=== PATIENT | male | born 1995 | race Caucasian/White ===

== ENCOUNTER 2019-12-10 17:26 | Emergency (ER) | payer SELFPAY ==
[2019-12-10 17:27] VITALS: BP 82/55; PULSE 104; RESP 19; TEMP 37.3; O2SAT 97; BMI 23.7
[2019-12-10 18:34] VITALS: RESP 16; O2SAT 98
--- NOTE | 2019-12-10 18:36 | W.ED.FEVER ---
HPI - Fever General: Chief Complaint: Fever Stated Complaint: FEVER Time Seen by Provider: 12/10/19 18:31 Source: patient Mode of arrival: ambulatory Limitations: no limitations History of Present Illness: HPI Narrative: Patient comes in today with 2-day history of fever with some nausea and vomiting. 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 Patient appears mildly unwell. Patient appears in no acute pain. Associated symptoms: Reports nausea and vomiting Review of Systems General: Reports: 10 or more systems reviewed and unremarkable except in HPI and below ENMT: Reports: throat pain Resp: Reports: non-productive cough GI: Reports: nausea and vomiting PFSH ED PFSH: Social History Smoking and tobacco status: never smoked Physical Exam Const: COMMON NORMALS: no apparent distress and oriented x3 GENERAL APPEARANCE: cooperative HENMT: COMMON NORMALS: normocephalic, external ears normal, EAC's normal, TM's normal bilaterally and external nose normal HEAD & SCALP: normal to inspection and normocephalic FACE & SINUS: normal facial exam NOSE: external nose normal GENERAL EAR: hearing not grossly impaired EXTERNAL EAR: Yes external ears normal EXTERNAL AUDITORY CANAL: EAC's normal TYMPANIC MEMBRANE: TM's normal bilaterally MOUTH: oral and palatal mucosa normal THROAT: posterior oropharynx abnormal cobblestoning and erythema Eye: COMMON NORMALS: PERRL and EOMs intact bilaterally PUPIL: Yes PERRL Neck/C-Spine: COMMON NORMALS: full ROM and no lymphadenopathy Lymph: LYMPHATIC: no lymphedema noted Chest: COMMONS NORMALS: inspection of chest normal and palpation of chest normal Resp: COMMON NORMALS: normal respiratory effort and clear to auscultation bilaterally AUSCULTATION: clear to auscultation bilaterally Cardio: COMMON NORMALS: regular rate and regular rhythm RATE: regular rate RHYTHM: regular rhythm GI: COMMON NORMALS: normal to inspection, nondistended, normoactive bowel sounds and non-tender : COMMON NORMALS: Yes no CVA tenderness BLADDER/KIDNEY EXAM: Yes no CVA tenderness Back/Pelvis: COMMON NORMALS: no CVA tenderness and thoracic and lumbar spine normal to inspection Extremity: COMMON NORMALS: normal to inspection GENERAL: No edema Neuro: COMMON NORMALS: oriented x3, moves all extremities and no focal motor deficits Psych: COMMON NORMALS: mental status grossly normal and cooperative Skin: COMMON NORMALS: no rashes or lesions noted GENERAL SKIN EXAM: no rashes or lesions noted Course Vital Signs: Vital signs: Vital Signs Temperature 99.2 F 12/10/19 17:27 Pulse Rate 79 12/10/19 19:02 Respiratory Rate 16 12/10/19 19:02 Blood Pressure 118/69 12/10/19 19:02 Pulse Oximetry 97 12/10/19 19:02 MDM - Fever MDM Narrative: Medical decision making narrative: Patient comes in today for complaints of fever, nausea and vomiting for the last 2 days. Patient appears unwell. Exam notes lungs clear to auscultation. Abdomen soft nontender. Skin is warm and dry. Vital signs were normal except for some mild elevation in pulse rate. Differential diagnosis includes influenza, sepsis, pneumonia, upper respiratory infection, viral syndrome. Laboratory values noted a mild decrease in sodium at 132. CBC was normal. Influenza was positive for type a influenza. Patient was given 1 L IV fluid with improvement in pulse rate and overall symptoms. Patient was encouraged to continue fluids we will start patient on Tamiflu and recommend follow-up as needed. Patient reported understanding agreed to plan. Lab Data: Labs: Lab Results 12/10/19 12/10/19 12/10/19 Range/Units 17:30 18:50 18:50 WBC 5.9 (4.0-10.0) 10^3/ uL RBC 5.15 (4.1-5.3) 10^6/u L Hgb 15.4 (11.7-16.6) g/dL Hct 44.7 (42.0-52.0) % MCV 86.8 (80-94) fL MCH 29.9 (28.0-34.0) pg MCHC 34.5 (30.0-36.0) g/dL RDW 11.2 L (12.1-15.1) % Plt Count 232 (130-400) 10^3/c mm MPV 9.6 (7.4-10.4) fL Neut % (Auto) 66.1 % Lymph % (Auto) 19.1 % [place] % (Auto) 14.3 % Eos % (Auto) 0.0 % Baso % (Auto) 0.2 % Neut # (Auto) 3.9 (1.8-7.7) 10^3/u L Lymph # (Auto) 1.1 (0.8-4.8) 10^3/u L [place] # (Auto) 0.8 (0.2-0.9) 10^3/u L Eos # (Auto) 0.0 (0.0-0.8) 10^3/u L Baso # (Auto) 0.0 (0.0-0.1) 10^3/u L Nucleated RBC % (a uto) 0 % Nucleated RBCs # 0.0 /100WBC Sodium 132 L (136-145) mmol/L Potassium 3.7 (3.5-5.1) mmol/L Chloride 96 L (98-107) mmol/L Carbon Dioxide 24 (22-29) mmol/L Anion Gap 15.7 (5-19) BUN 9 (6-20) mg/dL Creatinine 1.1 (0.7-1.2) mg/dL GFR Calculation 82.2 L (90-130) mL/min Glucose 100 (65-115) mg/dL Calcium 9.2 (8.5-10.5) mg/dL Total Bilirubin 0.5 (0.15-1.2) mg/dL AST 18 (0-40) U/L ALT 10 (0-41) U/L Alkaline Phosphata se 67 (40-130) IU/L Total Protein 7.9 (6.6-8.7) g/dL Albumin 4.5 (3.5-5.2) g/dL Globulin 3.4 (1.3-4.6) g/dL Influenza Type A A g Positive H (Negative) POC Influenza B Ag Negative (Negative) Discharge Plan Discharge Patient Disposition: Home, Self-Care Clinical Impression: Influenza Condition: Stable Prescriptions: New oseltamivir 75 mg capsule 75 mg PO BID 5 Days Qty: 10 RF: 0 ondansetron HCl 4 mg tablet 4 mg PO Q8H PRN (Reason: nausea and vomiting) Qty: 7 RF: 0 Discharge Orders: Discharge Order (Routine); Ordered 12/10/19 Ordered By: Joaquim Weaver Referrals: Ian Trammell DO [Primary Care Provider] - Discharge Diet: Advance as tolerated Discharge Activity: Increase activity as tolerated Patient Instructions: Influenza (ED) Activity Restrictions/Additional Instructions: Drink plenty of fluids Acetaminophen and ibuprofen for pain and fever Follow-up as needed for persistent symptoms Return to ER for worsening symptoms Stand Alone Forms: Work/School Release Coding Level of Care Code ED Document Control Coordinator for Chg Fwd Exam Comprehensive
[2019-12-10 18:43] LABS: Influenza A by IFA Positive (Negative); Influenza B by IFA Negative (Negative)
[2019-12-10] MEDS: sodium chloride 0.9% 1,000 ML 999 ML IV (18:50)
[2019-12-10] MEDS: ondansetron 2 mg/ML SDV 2 mL 4 MG IVP (18:51)
[2019-12-10 18:59] LABS: Basophils % 0.2 %; Hematocrit 44.7 % (42.0-52.0); Hemoglobin 15.4 g/dL (11.7-16.6); Lymphocytes # 1.1 10^3/uL (0.8-4.8); Lymphocytes % 19.1 %; Mean Corpuscular HGB Conc 34.5 g/dL (30.0-36.0); Mean Corpuscular Hemoglobin 29.9 pg (28.0-34.0); Mean Corpuscular Volume 86.8 fL (80-94); Mean Platelet Volume 9.6 fL (7.4-10.4); Monocytes # 0.8 10^3/uL (0.2-0.9); Monocytes % 14.3 %; Neutrophils # 3.9 10^3/uL (1.8-7.7); Neutrophils % 66.1 %; Nucleated Red Blood Cells % 0 %; Platelet Count 232 10^3/cmm (130-400); Red Blood Count 5.15 10^6/uL (4.1-5.3); Red Cell Distribution Width 11.2 % (12.1-15.1); White Blood Count 5.9 10^3/uL (4.0-10.0)
[2019-12-10 19:02] VITALS: BP 118/69; PULSE 79; RESP 16; O2SAT 97
[2019-12-10 19:14] LABS: Alanine Aminotransferase 10 U/L (0-41); Albumin Level 4.5 g/dL (3.5-5.2); Alkaline Phosphatase 67 IU/L (40-130); Anion Gap 15.7 (5-19); Aspartate Amino Transferase 18 U/L (0-40); Blood Urea Nitrogen 9 mg/dL (6-20); Calcium 9.2 mg/dL (8.5-10.5); Carbon Dioxide 24 mmol/L (22-29); Chloride 96 mmol/L (98-107); Globulin 3.4 g/dL (1.3-4.6); Glomerular Filtration Rate 82.2 mL/min (90-130); Glucose 100 mg/dL (65-115); Potassium 3.7 mmol/L (3.5-5.1); Sodium 132 mmol/L (136-145); Total Bilirubin 0.5 mg/dL (0.15-1.2); Total Protein 7.9 g/dL (6.6-8.7)
[2019-12-10] MEDS: oseltamivir phosphate 75 mg Capsule PO (19:54)
[2019-12-10 20:02] VITALS: BP 118/72; PULSE 78; RESP 16; O2SAT 98
== END 2019-12-10 20:03 | disposition home or self-care (01) ==
PROVIDERS: Family Medicine; Emergency Provider Nurse Practitioner Family; Family Provider Electrodiagnostic Medicine; PCP Electrodiagnostic Medicine
DX: J09.X2 Influenza due to identified novel influenza A virus with other respiratory manifestations (principal)
CPT/HCPCS: 36415; 80053; 85025; 87804; 96361; 96374; 96375; 99282; 99283; J2405; J7030

== ENCOUNTER → 2023-11-24 12:43 | Outpatient (BNVA) | payer SELFPAY | PROVIDERS: Family Provider Electrodiagnostic Medicine; Visit Provider Emergency Medicine | DX: R05.9 Cough, unspecified (principal); B34.9 Viral infection, unspecified | CPT/HCPCS: 87400; 87426 ==

== ENCOUNTER 2025-09-13 00:57 | Emergency (ER) | payer SELFPAY ==
[2025-09-13 00:59] VITALS: BP 131/91; PULSE 105; RESP 18; TEMP 36.6; O2SAT 95; BMI 22.3
--- OUTSIDE RECORDS SUMMARY | 2025-09-13 01:01 | XMS_ITS | Clinical Summary ---
Author Organization [facility] de Address [address] [place] [address] Phone Care Team Providers Care Platform Beater Name Role Phone Ian Trammell DO Primary Care Provider [phone] Allergies No known active allergies Medications amitriptyline (ELAVIL) 25 mg tablet Take 0.5 Tabs by mouth daily at bedtime. x1 wk; 25mg nightly x 1 wk; 37.5mg nightly x 1 week; 50mg nightly x 1 week. 180 Tab 6 09/05/2013 Active rizatriptan (MAXALT) 10 mg Tablet Take 1 Tab by mouth 1 time daily as needed for Migraine. 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 Social History Tobacco Use Types Packs/Day Years Used Date Smoking Tobacco: Never Assessed Sex and Gender Information Value Date Recorded Sex Assigned at Not on file Legal Sex Male 3:44 PM CDT Gender Identity Not on file Sexual Orientation Not on file Last Filed Vital Signs Vital Sign Reading Time Taken Comments Blood Pressure 100/60 09/05/2013 1:42 PM PARA EDUCATOR Pulse 72 09/05/2013 1:42 PM PARA EDUCATOR Temperature - - Respiratory Rate - - Oxygen Saturation - - Inhaled Oxygen Concentration - - Weight 69.9 kg (154 lb) 09/05/2013 1:42 PM PARA EDUCATOR Height 178 cm (5' 10.08 ) 09/05/2013 1:42 PM PARA EDUCATOR Body Mass Index 22.05 09/05/2013 1:42 PM PARA EDUCATOR Plan of Treatment Health Maintenance Due Date Last Done Comments DTAP/TDAP/TD VACCINES (1 - Tdap) 2014 HEPATITIS B VACCINES (1 of 3 - 19+ 3-dose series) 08/23 HPV VACCINES (1 - 3-dose SCDM series) 2022 INFLUENZA VACCINE (#1) 2025 [place] Care Teams Platform Beater Relationship Specialty Start Date End Date Ian Trammell DO PCP - General Family Practice 09/05/13
--- NOTE | 2025-09-13 01:02 | XRR_ITS ---
PROCEDURE INFORMATION: Exam: XR Chest Exam date and time: 09/13/2025 1:08 AM Age: 29 years old Clinical indication: Pain; Chest pressure and left-sided; Additional info: Cp TECHNIQUE: Imaging protocol: Radiologic exam of the chest. Views: 1 view. COMPARISON: No relevant prior studies available. FINDINGS: Lungs: Unremarkable. No consolidation. Pleural spaces: Unremarkable. No pleural effusion. No pneumothorax. Heart/Mediastinum: Unremarkable. No cardiomegaly. Bones/joints: Unremarkable. XR/XR chest 1V portable [id number] IMPRESSION: No acute findings.
--- NOTE | 2025-09-13 01:04 | ECG_ITS ---
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 Measurements Intervals [place] Rate: 90 P: 69 AR: 150 QRS: 77 QRSD: 95 T: 64 QT: 335 QTc: 411 Interpretive Statements SINUS RHYTHM WITH MARKED SINUS ARRHYTHMIA Compared to ECG 08/25/2019 02:51:44 No significant changes Electronically Signed On 09-13-2025 17:25:03 ALLERGY AND IMMUNOLOGY SPECIALIST by Carlee Ashley M.D. [id number]
[2025-09-13 01:13] LABS: Hematocrit 43.9 % (37-53); Hemoglobin 15.80 g/dL (11.27-16.99); Mean Corpuscular HGB Conc 36.0 g/dL (30-55); Mean Corpuscular Hemoglobin 30.7 pg (27-33); Mean Corpuscular Volume 85.4 fl (82-101); Nucleated Red Blood Cells % 0 %; Platelet Count 399 10^3/cmm (157-399); Red Blood Count 5.14 10^6/uL (3.85-5.65); White Blood Count 11.36 10^3/uL (3.29-11.43)
[2025-09-13 01:30] LABS: Troponin(5th) Baseline 7 ng/L (0-15)
[2025-09-13 01:47] LABS: Alcohol Level 236 mg/dL (0-10); Anion Gap 20.3 (5-19); Blood Urea Nitrogen 18 mg/dL (6-20); Calcium 8.7 mg/dL (8.5-10.5); Carbon Dioxide 23 mmol/L (22-29); Chloride 98 mmol/L (98-107); Glucose 122 mg/dL (65-115); Magnesium 2.3 mg/dL (1.7-2.3); NT Pro B Type Natriuretic Pept < 36 pg/mL (0-125); Osmolality Calculated 287 mOsm/kg (285-295); Potassium 4.3 mmol/L (3.5-5.1); Sodium 137 mmol/L (136-145)
[2025-09-13 02:07] LABS: CRP High Sensitivity Cardiac < 0.150 mg/dL (0.0-0.3)
[2025-09-13] MEDS: LORazepam 2 mg/mL INJ 1 mL 0.5 MG IVP (02:35)
[2025-09-13 02:54] LABS: Troponin 5 2HR 7.24 ng/L (0-15); Troponin 5 2HR Delta 0.24 ABS# (0-10)
--- NOTE | 2025-09-13 03:25 | ED_ITS ---
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 The episode was described as sudden onset, with the patient crawling out of bed and screaming for help due to inability to breathe and chest tightness. Family witnessed him on the floor and reports seizure-like activity but patient remained conscious throughout. He reports no recent prior similar episodes, no recent illness, fever. No history of blood clots, no recent immobilization, no leg pain or redness, no history of cancer. Does endorse being under an increased amount of stress recently with having to pay child support and his job. Associated symptoms: Reports chest pain Related Data Home Medications ?Medication ?Instructions ?Recorded ?Confirmed No Known Home Medications 11/24/2301/12 Previous Rx's ?Medication ?Instructions ?Recorded lorazepam 1 mg tablet (Ativan) 1 mg PO DAILY PRN anxie ty #5 tabs 09/13/25 Allergies Allergy/AdvReac Type Severity Reaction Status Date / Time No Known Allergies Allergy Verified 11/24/23 12:24 Review of Systems 2 General: Reports: 10 or more systems reviewed and unremarkable except in HPI and below Card: Reports: chest pain Resp: Reports: dyspnea [facility] 2 PFSH: Social History Smoking and tobacco/nicotine status: never used tobacco/nicotine Physical Exam 2 Narrative: EXAM NARRATIVE: Patient appears moderately anxious, tachycardic but other vital stable on arrival, afebrile, no acute distress. Appears mildly clinically intoxicated, pupils equal reactive but sluggish, all 4 extremities moving symmetrically and spontaneously, sinus tachycardia with no leg swelling, no murmurs, 2+ pulses throughout, slightly delayed cap refill, abdomen soft, nontender, nondistended, breathing comfortably on room air, saturating well, able to speak in full sentences without getting short of breath, no signs of respiratory distress. Course 2 Vital Signs: Vital signs: Vital Signs Temperature 98 F 09/13/25 00:59 Pulse Rate 105 H 09/13/25 00:59 Respiratory Rate 18 09/13/25 00:59 Blood Pressure 131/91 09/13/25 00:59 Pulse Oximetry 95 09/13/25 00:59 MDM - Seizure MDM Narrative Medical decision making narrative: -ddx: intoxication, panic disorder, seizure, PNES, ACS, dysrythmia, PE, electrolyte abnl, dehydration, others -patient appears after an abrupt episode of CP, palpitations, SOB, possible seizure like activity. with nature of sx, tachycardia, cardiac eval intiated. -patient with EKG with no ischemic changes, delta troponins negative, no ddimer elevation so CTAPE not pursued. CXR with no effusions, cardiomegaly, infiltrates, PTX. other labs reassuring for no systemic infection, electrolyte abnl, SIRI. Etoh moderately elevated, had improved some with Toradol and then a lot more after ativan. had extensive conversation with patient and father, patient has been under an increasing amount of stress, has hx of seizure like activity as a kid in response to stress and with a reassuring ED workup otherwise, felt comfortable in treating this as such, patient given a short prescription of benzos at home in situations like tonight to see if it helped, referred to a Psychologist for further management of his mental health as he wishes to manage things non-pharmacologically as possible, with the meds just being there for backup. Patient with complete relief of CP and SOB on exam, mentation and affect was much improved, no further episodes in the ED of any sz like activity and so patient dc'd home in stable condition with strict return cautions given. Lab Data 09/13/25 00:50 09/13/25 00:50 Labs: Radiology Impressions Chest X-Ray 09/13/25 01:02 IMPRESSION: No acute findings. Laboratory Results WBC 11.36 10^3/uL (3.29-11.43) 09/13/25 00:50 RBC 5.14 10^6/uL (3.85-5.65) 09/13/25 00:50 Hgb 15.80 g/dL (11.27-16.99) 09/13/25 00:50 Hct 43.9 % (37-53) 09/13/25 00:50 MCV 85.4 fl (82-101) 09/13/25 00:50 MCH 30.7 pg (27-33) 09/13/25 00:50 MCHC 36.0 g/dL (30-55) 09/13/25 00:50 RDW 12.4 % (12.1-15.1) 09/13/25 00:50 Plt Count 399 10^3/cmm (157-399) 09/13/25 00:50 MPV 8.7 fL (7.4-10.4) 09/13/25 00:50 Neut % (Auto) 33.2 % 09/13/25 00:50 Lymph % (Auto) 58.8 % 09/13/25 00:50 [place] % (Auto) 6.7 % 09/13/25 00:50 Eos % (Auto) 0.3 % 09/13/25 00:50 Baso % (Auto) 0.8 % 09/13/25 00:50 Neut # (Auto) 3.78 10^3/uL (1.8-7.7) 09/13/25 00:50 Lymph # (Auto) 6.7 10^3/uL (0.8-4.8) H 09/13/25 00:50 [place] # (Auto) 0.8 10^3/uL (0.2-0.9) 09/13/25 00:50 Eos # (Auto) 0.0 10^3/uL (0.0-0.8) 09/13/25 00:50 Baso # (Auto) 0.1 10^3/uL (0.0-0.1) 09/13/25 00:50 Nucleated RBC % (auto) 0 % 09/13/25 00:50 Nucleated RBCs # 0.0 /100WBC 09/13/25 00:50 D-Dimer 0.44 ug/mLFEU (0-0.59) 09/13/25 00:50 Sodium 137 mmol/L (136-145) 09/13/25 00:50 Potassium 4.3 mmol/L (3.5-5.1) 09/13/25 00:50 Chloride 98 mmol/L (98-107) 09/13/25 00:50 Carbon Dioxide 23 mmol/L (22-29) 09/13/25 00:50 Anion Gap 20.3 (5-19) H 09/13/25 00:50 BUN 18 mg/dL (6-20) 09/13/25 00:50 Creatinine 1.2 mg/dL (0.7-1.2) 09/13/25 00:50 GFR Calculation 71.6 mL/min (90-130) L 09/13/25 00:50 Glucose 122 mg/dL (65-115) H 09/13/25 00:50 Calculated Osmolality 287 mOsm/kg (285-295) 09/13/25 00:50 Calcium 8.7 mg/dL (8.5-10.5) 09/13/25 00:50 Phosphorus 4.1 mg/dL (2.5-4.5) 09/13/25 00:50 Magnesium 2.3 mg/dL (1.7-2.3) 09/13/25 00:50 Troponin T Baseline 7 ng/L (0-15) 09/13/25 00:50 Troponin T 120 Minute 7.24 ng/L (0-15) 09/13/25 02:34 Delta Troponin T 0.24 ABS# (0-10) 09/13/25 02:34 C-React Prot High Sens < 0.150 mg/dL (0.0-0.3) 09/13/25 00:50 NT-Pro-B Natriuret Pep < 36 pg/mL (0-125) 09/13/25 00:50 Ethyl Alcohol 236 mg/dL (0-10) H 09/13/25 00:50 All radiology interpretation(s) finalized by discharge EKG Data EKG 1: Interpretation: Normal sinus rhythm at 90bpm with no interval prolongation, no ST elevation or depression Discharge Plan Discharge Patient Disposition: Home Clinical Impression: Seizure-like activity, Anxiety, Elevated ETOH level Condition: Stable Prescriptions: New lorazepam [Ativan] 1 mg tablet 1 mg PO DAILY PRN (Reason: anxiety) Qty: 5 0RF No Action No Known Home Medications Discharge Orders: Discharge ED (Routine); Ordered 09/13/25 Ordered By: Mario Collins Referrals: Deepa Hua MD [Staff Physician, Psychology] - 4-7 days Clinical Impression: Seizure-like activity; Anxiety Discharge Diet: Usual diet Discharge Activity: Increase activity as tolerated Patient Instructions: Opioid Safety, Pain Management, Patient Portal & [place] Instructions Activity Restrictions/Additional Instructions: You were seen for your episode of chest pain and shortness of breath, your evaluated with labs, an EKG and chest x-ray that were ultimately reassuring. You improved with an IV dose of Ativan and so if this episode occurs at home, take the tablet, try to calm yourself and see if your symptoms improve, if they did not, return to the ED for further evaluation. For further discussion of your anxiety and life stressors that are probably also triggering these episodes, follow-up with the psychology clinic listed above, they do not contact you within the next 3 days, call their clinic to set up an initial appointment. Try to decrease your alcohol intake but do not cut it off completely for now. Return to the ED with continued seizure-like activity, difficulties breathing, severe worsening of your pain, fevers, episodes of passing out, any other emergent concerns. Print Language: Amharic Coding Level of Care Code ED Commercial Portfolio Manager for [employer]
== END 2025-09-13 03:44 | disposition home or self-care (01) ==
PROVIDERS: Emergency Provider Student in an Organized Health Care Education/Training Program; PCP Electrodiagnostic Medicine
DX: R56.9 Unspecified convulsions (principal); F41.9 Anxiety disorder, unspecified; F10.129 Alcohol abuse with intoxication, unspecified; Y90.7 Blood alcohol level of 200-239 mg/100 ml
CPT/HCPCS: 36415; 71045; 80048; 80307; 83735; 83880; 84100; 84484; 85025; 85378; 86141; 93005; 96361; 96374; 96375; 99285; J1885; J2060; J7120

== ENCOUNTER 2025-09-27 19:44 | Emergency (ER) | payer SELFPAY ==
[2025-09-27 19:26] VITALS: BP 141/94; PULSE 99; RESP 17; TEMP 36.3; O2SAT 97; BMI 29.7
--- NOTE | 2025-09-27 19:27 | ED_ITS ---
Documented by User: JOSE Devi 09/27/25 23:42 HPI - Seizure 2 General: Chief Complaint: Seizure Stated Complaint: SEIZURE Source: patient and EMS Mode of arrival: EMS Limitations: no limitations History of Present Illness: HPI Narrative: Patient is a 30-year-old male who presents to ED today with via EMS for seizure- like activity. EMS states they arrived on scene and patient was having tonic- clonic movements on the floor. He reportedly was unconscious. Patient was seen here last month for seizure-like activity. He does report a seizure history during childhood. At one point he was told he had epilepsy but then later he was told these were functional seizures. He did report a seizure last week. Patient states he does drink alcohol daily. He does use marijuana. MD complaint: seizure and possible seizure Onset (ago): minute(s) Description of Episode: loss of consciousness and tonic-clonic movement -: minutes(s) Witnessed: Yes - by Bystander Trauma: No Seizure History: Yes Place: Home Associated symptoms: Deny chest pain, chills, fever(s), malaise or syncope Treatments prior to arrival: other (VERSED BY EMS) Related Data Previous Rx's ?Medication ?Instructions ?Recorded lorazepam 1 mg tablet (Ativan) 1 mg PO DAILY PRN anxie ty #5 tabs 09/13/25 levetiracetam 500 mg tablet 500 mg PO BID #60 tabs 05/15 (Keppra) Allergies Allergy/AdvReac Type Severity Reaction Status Date / Time No Known Allergies Allergy Verified 11/24/23 12:24 Review of Systems 2 Const: Denies: fever(s), chills, body aches, fatigue or malaise Eyes: Denies: change in vision or blurry vision Card: Denies: chest pain, palpitations, irregular heart rhythm, lightheadedness, syncope or dyspnea on exertion Resp: Denies: dyspnea, productive cough or pain on inspiration GI: Denies: abdominal pain, nausea, vomiting, heartburn or diarrhea : Denies: difficulty urinating or dysuria Musc: Denies: neck pain, back pain or joint pain Skin/Breast: Denies: rash Neuro: Reports: seizure-like activity; Denies: headache(s), numbness in extremities, weakness in extremities, sensory changes or dizziness PFSH ED 2 PFSH: Social History Smoking and tobacco/nicotine status: never used tobacco/nicotine Physical Exam 2 Const: COMMON NORMALS: no acute distress, patient oriented x3, no limitations, alert and well nourished GENERAL APPEARANCE: cooperative HENMT: COMMON NORMALS: normocephalic and atraumatic HEAD & SCALP: normal to inspection, normocephalic and atraumatic FACE & SINUS: normal facial exam Eye: COMMON NORMALS: Equal, round and reactive pupils present and EOMs intact bilaterally GENERAL EYE: appearance normal, both eyes and all related structures and normal light reflex PUPIL: Yes Equal, round and reactive pupils present DIRECT OPHTHALMOSCOPY: Yes normal light reflex Neck/C-Spine: COMMON NORMALS: full ROM, no lymphadenopathy, supple and no meningeal signs Chest: COMMONS NORMALS: normal inspection of the chest Resp: COMMON NORMALS: normal respiratory effort and clear to auscultation bilaterally AUSCULTATION: clear to auscultation bilaterally Cardio: COMMON NORMALS: regular rate and regular rhythm RATE: regular rate RHYTHM: regular rhythm GI: COMMON NORMALS: Normal to inspection, nondistended, normoactive bowel sounds present, Soft to palpation, non-tender, No hepatosplenomegaly present and no masses PALPATION: Yes Soft to palpation and Yes No hepatosplenomegaly present : COMMON NORMALS: Yes no CVA tenderness BLADDER/KIDNEY EXAM: Yes no CVA tenderness Back/Pelvis: COMMON NORMALS: no CVA tenderness and thoracic and lumbar spine normal to inspection Extremity: COMMON NORMALS: normal to inspection Neuro: COMMON NORMALS: patient oriented x3 SENSORIUM/ORIENTATION: Yes alert MENINGEAL SIGNS: Yes no meningeal signs Skin: COMMON NORMALS: no rashes or lesions noted GENERAL SKIN EXAM: no rashes or lesions noted Course 2 Vital Signs: Vital signs: Vital Signs Temperature 97.4 F L 09/27/25 19:26 Pulse Rate 90 09/27/25 22:06 Respiratory Rate 16 09/27/25 22:06 Blood Pressure 112/75 09/27/25 22:06 Pulse Oximetry 98 09/27/25 22:06 Oxygen Delivery Me thod Nasal Cannula 09/27/25 20:14 Oxygen Flow Rate 3 09/27/25 20:14 MDM - Seizure MDM Narrative Medical decision making narrative: Patient a 30-year-old male who presents to the ED today by EMS for evaluation of a seizure that he had just prior to arrival. He reports a history of seizures as a child. At some point he has been told that he has functional seizures. He was here in the emergency department last month following a seizure. He reports a seizure last week and then again today. While here in the emergency department, patient was witnessed to have multiple seizures. He was semiconscious through some of them with very minimal/almost no postictal symptoms. Patient was also evaluated along with Dr. Villalba. He was given 2g Keppra, 2 mg Ativan, 3 mg Haldol and has since been resting comfortably. Question whether these are epileptic versus nonepileptic seizure episodes. He does drink alcohol frequently. Alcohol was 248 today. Denies history of alcoholic withdrawal seizures. Patient's drug screen is positive for benzodiazepines which she was administered here. He was also positive for cocaine which he denied. He did admit to marijuana use but tox screen was negative for this. Will place him on Keppra twice daily and have him follow-up with neurology. Lab Data 09/27/25 19:48 09/27/25 20:27 Labs: Laboratory Results WBC 8.58 10^3/uL (3.29-11.43) 09/27/25 19:48 RBC 4.68 10^6/uL (3.85-5.65) 09/27/25 19:48 Hgb 14.40 g/dL (11.27-16.99) 09/27/25 19:48 Hct 40.1 % (37-53) 09/27/25 19:48 MCV 85.7 fl (82-101) 09/27/25 19:48 MCH 30.8 pg (27-33) 09/27/25 19:48 MCHC 35.9 g/dL (30-55) 09/27/25 19:48 RDW 12.1 % (12.1-15.1) 09/27/25 19:48 Plt Count 350 10^3/cmm (157-399) 09/27/25 19:48 MPV 8.5 fL (7.4-10.4) 09/27/25 19:48 Neut % (Auto) 48.8 % 09/27/25 19:48 Lymph % (Auto) 41.8 % 09/27/25 19:48 Newton % (Auto) 6.5 % 09/27/25 19:48 Eos % (Auto) 1.7 % 09/27/25 19:48 Baso % (Auto) 1.0 % 09/27/25 19:48 Neut # (Auto) 4.17 10^3/uL (1.8-7.7) 09/27/25 19:48 Lymph # (Auto) 3.6 10^3/uL (0.8-4.8) 09/27/25 19:48 Newton # (Auto) 0.6 10^3/uL (0.2-0.9) 09/27/25 19:48 Eos # (Auto) 0.2 10^3/uL (0.0-0.8) 09/27/25 19:48 Baso # (Auto) 0.1 10^3/uL (0.0-0.1) 09/27/25 19:48 Nucleated RBC % (auto) 0 % 09/27/25 19:48 Nucleated RBCs # 0.0 /100WBC 09/27/25 19:48 Sodium 136 mmol/L (136-145) 09/27/25 20:27 Potassium 3.7 mmol/L (3.5-5.1) 09/27/25 20:27 Chloride 101 mmol/L (98-107) 09/27/25 20:27 Carbon Dioxide 23 mmol/L (22-29) 09/27/25 20:27 Anion Gap 15.7 (5-19) 09/27/25 20:27 BUN 17 mg/dL (6-20) 09/27/25 20:27 Creatinine 0.9 mg/dL (0.7-1.2) 09/27/25 20:27 GFR Calculation 99.1 mL/min (90-130) 09/27/25 20:27 Glucose 115 mg/dL (65-115) 09/27/25 20:27 Calculated Osmolality 284 mOsm/kg (285-295) L 09/27/25 20:27 Calcium 8.4 mg/dL (8.5-10.5) L 09/27/25 20:27 Total Bilirubin 0.5 mg/dL (0.15-1.2) 09/27/25 20:27 AST 37 U/L (0-40) 09/27/25 20:27 ALT 28 U/L (0-41) 09/27/25 20:27 Alkaline Phosphatase 60 U/L (40-130) 09/27/25 20:27 Total Protein 6.4 g/dL (6.6-8.7) L 09/27/25 20:27 Albumin 3.9 g/dL (3.5-5.2) 09/27/25 20:27 Globulin 2.5 g/dL (1.3-4.6) 09/27/25 20:27 Salicylates < 0.3 mg/dL (3-10) L 09/27/25 20:27 Urine Opiates Screen Negative ng/mL (Negative) 09/27/25 22:17 Acetaminophen < 5.0 ug/mL (10-30) L 09/27/25 20:27 Ur Barbiturates Screen Negative ng/mL (Negative) 09/27/25 22:17 Ur Phencyclidine Scrn Negative ng/mL (Negative) 09/27/25 22:17 Ur Amphetamines Screen Negative ng/mL (Negative) 09/27/25 22:17 U Benzodiazepines Scrn Positive ng/mL (Negative) H 09/27/25 22:17 Urine Cocaine Screen Positive ng/mL (Negative) H 09/27/25 22:17 U Marijuana (THC) Screen Negative ng/mL (Negative) 09/27/25 22:17 Ethyl Alcohol 248 mg/dL (0-10) H 09/27/25 20:27 No radiology studies performed this visit Discharge Plan Discharge Patient Disposition: Home Clinical Impression: Seizure Condition: Stable Prescriptions: New levetiracetam [Keppra] 500 mg tablet 500 mg PO BID Qty: 60 0RF No Action lorazepam [Ativan] 1 mg tablet 1 mg PO DAILY PRN (Reason: anxiety) Qty: 5 0RF Discharge Orders: Discharge ED (Routine); Ordered 09/27/25 Ordered By: Heidi Murguia Referrals: aIn Trammell DO [Primary Care Provider, Family Practice] Patient Instructions: Epilepsy (DC), Nonepileptic Seizures (DC), Patient Portal & [facility]ara Instructions, Seizures Activity Restrictions/Additional Instructions: As we discussed, please start your Keppra twice daily. Will place a case management referral to get you set up with neurology for further evaluation of your seizures. Print Language: Libyan Coding Level of Care Code ED Building Supervisor for Chg Fwd Documented by User: Alexis Villalba DO 09/28/25 00:09 HPI - Seizure 2 General: Chief Complaint: Seizure Stated Complaint: SEIZURE Related Data Previous Rx's ?Medication ?Instructions ?Recorded lorazepam 1 mg tablet (Ativan) 1 mg PO DAILY PRN anxie ty #5 tabs 09/13/25 levetiracetam 500 mg tablet 500 mg PO BID #60 tabs 05/15 (Keppra) Allergies Allergy/AdvReac Type Severity Reaction Status Date / Time No Known Allergies Allergy Verified 11/24/23 12:24 PFSH ED 2 PFSH: Social History Smoking and tobacco/nicotine status: never used tobacco/nicotine Course 2 Vital Signs: Vital signs: Vital Signs Temperature 97.4 F L 09/27/25 19:26 Pulse Rate 90 09/27/25 22:06 Respiratory Rate 16 09/27/25 22:06 Blood Pressure 112/75 09/27/25 22:06 Pulse Oximetry 98 09/27/25 22:06 Oxygen Delivery Me thod Nasal Cannula 09/27/25 20:14 Oxygen Flow Rate 3 09/27/25 20:14 MDM - Seizure MDM Narrative Medical decision making narrative: Patient a 30-year-old male who presents to the ED today by EMS for evaluation of a seizure that he had just prior to arrival. He reports a history of seizures as a child. At some point he has been told that he has functional seizures. He was here in the emergency department last month following a seizure. He reports a seizure last week and then again today. While here in the emergency department, patient was witnessed to have multiple seizures. He was semiconscious through some of them with very minimal/almost no postictal symptoms. Patient was also evaluated along with Dr. Villalba. He was given 2g Keppra, 2 mg Ativan, 3 mg Haldol and has since been resting comfortably. Question whether these are epileptic versus nonepileptic seizure episodes. He does drink alcohol frequently. Alcohol was 248 today. Denies history of alcoholic withdrawal seizures. Patient's drug screen is positive for benzodiazepines which he was administered here. He was also positive for cocaine which he denied. He did admit to marijuana use but tox screen was negative for this. Will place him on Keppra twice daily and have him follow-up with neurology. This patient was originally seen by Mrs. MurguiaROSEY Valentino. I agree with her history, evaluation, and management. I have seen the patient as well. He responded well to Haldol, and seemed not to have another seizure-like episode following administration of this. He will be placed on Keppra as above. Follow-up with neurology. Follow-up PCP as well. Lab Data 09/27/25 19:48 09/27/25 20:27 Labs: Laboratory Results WBC 8.58 10^3/uL (3.29-11.43) 09/27/25 19:48 RBC 4.68 10^6/uL (3.85-5.65) 09/27/25 19:48 Hgb 14.40 g/dL (11.27-16.99) 09/27/25 19:48 Hct 40.1 % (37-53) 09/27/25 19:48 MCV 85.7 fl (82-101) 09/27/25 19:48 MCH 30.8 pg (27-33) 09/27/25 19:48 MCHC 35.9 g/dL (30-55) 09/27/25 19:48 RDW 12.1 % (12.1-15.1) 09/27/25 19:48 Plt Count 350 10^3/cmm (157-399) 09/27/25 19:48 MPV 8.5 fL (7.4-10.4) 09/27/25 19:48 Neut % (Auto) 48.8 % 09/27/25 19:48 Lymph % (Auto) 41.8 % 09/27/25 19:48 Newton % (Auto) 6.5 % 09/27/25 19:48 Eos % (Auto) 1.7 % 09/27/25 19:48 Baso % (Auto) 1.0 % 09/27/25 19:48 Neut # (Auto) 4.17 10^3/uL (1.8-7.7) 09/27/25 19:48 Lymph # (Auto) 3.6 10^3/uL (0.8-4.8) 09/27/25 19:48 Newton # (Auto) 0.6 10^3/uL (0.2-0.9) 09/27/25 19:48 Eos # (Auto) 0.2 10^3/uL (0.0-0.8) 09/27/25 19:48 Baso # (Auto) 0.1 10^3/uL (0.0-0.1) 09/27/25 19:48 Nucleated RBC % (auto) 0 % 09/27/25 19:48 Nucleated RBCs # 0.0 /100WBC 09/27/25 19:48 Sodium 136 mmol/L (136-145) 09/27/25 20:27 Potassium 3.7 mmol/L (3.5-5.1) 09/27/25 20:27 Chloride 101 mmol/L (98-107) 09/27/25 20:27 Carbon Dioxide 23 mmol/L (22-29) 09/27/25 20:27 Anion Gap 15.7 (5-19) 09/27/25 20:27 BUN 17 mg/dL (6-20) 09/27/25 20:27 Creatinine 0.9 mg/dL (0.7-1.2) 09/27/25 20:27 GFR Calculation 99.1 mL/min (90-130) 09/27/25 20:27 Glucose 115 mg/dL (65-115) 09/27/25 20:27 Calculated Osmolality 284 mOsm/kg (285-295) L 09/27/25 20:27 Calcium 8.4 mg/dL (8.5-10.5) L 09/27/25 20:27 Total Bilirubin 0.5 mg/dL (0.15-1.2) 09/27/25 20:27 AST 37 U/L (0-40) 09/27/25 20:27 ALT 28 U/L (0-41) 09/27/25 20:27 Alkaline Phosphatase 60 U/L (40-130) 09/27/25 20:27 Total Protein 6.4 g/dL (6.6-8.7) L 09/27/25 20:27 Albumin 3.9 g/dL (3.5-5.2) 09/27/25 20:27 Globulin 2.5 g/dL (1.3-4.6) 09/27/25 20:27 Salicylates < 0.3 mg/dL (3-10) L 09/27/25 20:27 Urine Opiates Screen Negative ng/mL (Negative) 09/27/25 22:17 Acetaminophen < 5.0 ug/mL (10-30) L 09/27/25 20:27 Ur Barbiturates Screen Negative ng/mL (Negative) 09/27/25 22:17 Ur Phencyclidine Scrn Negative ng/mL (Negative) 09/27/25 22:17 Ur Amphetamines Screen Negative ng/mL (Negative) 09/27/25 22:17 U Benzodiazepines Scrn Positive ng/mL (Negative) H 09/27/25 22:17 Urine Cocaine Screen Positive ng/mL (Negative) H 09/27/25 22:17 U Marijuana (THC) Screen Negative ng/mL (Negative) 09/27/25 22:17 Ethyl Alcohol 248 mg/dL (0-10) H 09/27/25 20:27 Discharge Plan Discharge Patient Disposition: Home Clinical Impression: Seizure Condition: Stable Prescriptions: New levetiracetam [Keppra] 500 mg tablet 500 mg PO BID Qty: 60 0RF No Action lorazepam [Ativan] 1 mg tablet 1 mg PO DAILY PRN (Reason: anxiety) Qty: 5 0RF Discharge Orders: Discharge ED (Routine); Ordered 09/27/25 Ordered By: Heidi Murguia Referrals: Ian Trammell DO [Primary Care Provider, Family Practice] Patient Instructions: Epilepsy (DC), Nonepileptic Seizures (DC), Patient Portal & Chiara Instructions, Seizures Activity Restrictions/Additional Instructions: As we discussed, please start your Keppra twice daily. Will place a case management referral to get you set up with neurology for further evaluation of your seizures. Print Language: Libyan Coding Level of Care Code ED Building Supervisor for [facility] [place]
--- OUTSIDE RECORDS SUMMARY | 2025-09-27 19:48 | XMS_ITS | Clinical Summary ---
Author Organization [facility] de Address [address] [place] [address] Phone Care Team Providers Care Boat Hoist Operator Name Role Phone Ian Trammell DO Primary Care Provider [phone] Allergies No known active allergies Medications amitriptyline [...] Comments Blood Pressure 100/60 09/05/2013 1:42 PM CARGO SUPERVISOR Pulse 72 09/05/2013 1:42 PM CARGO SUPERVISOR Temperature - - Respiratory Rate - - Oxygen Saturation - - Inhaled Oxygen Concentration - - Weight 69.9 kg (154 lb) 09/05/2013 1:42 PM CARGO SUPERVISOR Height 178 cm (5' 10.08 ) 09/05/2013 1:42 PM CARGO SUPERVISOR Body Mass Index 22.05 09/05/2013 1:42 PM CARGO SUPERVISOR Plan of Treatment Health Maintenance Due Date Last Done Comments DTAP/TDAP/TD VACCINES (1 - Tdap) 2014 HEPATITIS B VACCINES (1 of 3 - 19+ 3-dose series) 08/23 INFLUENZA VACCINE (#1) 2025 HPV VACCINES (No Doses Required) Completed Insurance [place] Care Teams Boat Hoist Operator Relationship Specialty Start Date End Date Ian Trammell DO PCP - General Family Practice 09/05/13
[2025-09-27 19:53] LABS: Hematocrit 40.1 % (37-53); Hemoglobin 14.40 g/dL (11.27-16.99); Mean Corpuscular HGB Conc 35.9 g/dL (30-55); Mean Corpuscular Hemoglobin 30.8 pg (27-33); Mean Corpuscular Volume 85.7 fl (82-101); Nucleated Red Blood Cells % 0 %; Platelet Count 350 10^3/cmm (157-399); Red Blood Count 4.68 10^6/uL (3.85-5.65); White Blood Count 8.58 10^3/uL (3.29-11.43)
[2025-09-27] MEDS: LORazepam 2 mg/mL INJ 1 mL IVP (19:55)
[2025-09-27] MEDS: haloperidol inj 5 mg/mL INJ 1 mL 3 MG IVP (19:55)
[2025-09-27] MEDS: levETIRAcetam 2,000 MG/200 ML PREMIX 400 MG IV (19:55)
[2025-09-27] MEDS: LORazepam 2 mg/mL INJ 1 mL (20:07)
[2025-09-27 20:14] VITALS: BP 112/78; PULSE 99; RESP 16; O2SAT 96
[2025-09-27 20:44] VITALS: BP 112/78; PULSE 97; RESP 16; O2SAT 96
[2025-09-27 21:03] LABS: Alanine Aminotransferase 28 U/L (0-41); Albumin Level 3.9 g/dL (3.5-5.2); Alcohol Level 248 mg/dL (0-10); Alkaline Phosphatase 60 U/L (40-130); Anion Gap 15.7 (5-19); Aspartate Amino Transferase 37 U/L (0-40); Blood Urea Nitrogen 17 mg/dL (6-20); Calcium 8.4 mg/dL (8.5-10.5); Carbon Dioxide 23 mmol/L (22-29); Chloride 101 mmol/L (98-107); Globulin 2.5 g/dL (1.3-4.6); Glucose 115 mg/dL (65-115); Osmolality Calculated 284 mOsm/kg (285-295); Potassium 3.7 mmol/L (3.5-5.1); Sodium 136 mmol/L (136-145); Total Protein 6.4 g/dL (6.6-8.7)
[2025-09-27 21:06] VITALS: BP 112/78; PULSE 95; RESP 16; O2SAT 96
[2025-09-27 21:11] LABS: Acetaminophen < 5.0 ug/mL (10-30); Salicylate < 0.3 mg/dL (3-10)
[2025-09-27 21:33] VITALS: BP 108/69; PULSE 91; RESP 15; O2SAT 97
[2025-09-27 22:06] VITALS: BP 112/75; PULSE 90; RESP 16; O2SAT 98
--- NOTE | 2025-09-27 22:12 | PC.NURSE ---
Called dad to let him know patient is ready to go home and he is on the way to get him now
[2025-09-27 22:48] LABS: PCP Screen Urine Negative (Negative)
== END 2025-09-27 22:34 | disposition home or self-care (01) ==
PROVIDERS: Emergency Provider Physician Assistant; PCP Electrodiagnostic Medicine
DX: R56.9 Unspecified convulsions (principal)
CPT/HCPCS: 36415; 80053; 80306; 80307; 85025; 96365; 96375; 99284; J1630; J1953; J2060

== ENCOUNTER 2025-10-02 20:04 | Emergency (ER) | payer OTHER, SELFPAY ==
[2025-10-02] VITALS (7 sets, daily range): BP systolic 105–119; BP diastolic 65–100; PULSE 82–135; RESP 27; TEMP 36.6; O2SAT 94–98; BMI 26.4
--- OUTSIDE RECORDS SUMMARY | 2025-10-02 20:08 | XMS_ITS | Clinical Summary ---
Author Organization [facility] de Address [address] [place] [address] Phone Care Team Providers Care Occupational Health Coordinator Name Role Phone Ian Trammell DO Primary Care Provider [phone] Allergies No known active allergies Medications amitriptyline [...] Comments Blood Pressure 100/60 09/05/2013 1:42 PM FACILITIES PAINTER Pulse 72 09/05/2013 1:42 PM FACILITIES PAINTER Temperature - - Respiratory Rate - - Oxygen Saturation - - Inhaled Oxygen Concentration - - Weight 69.9 kg (154 lb) 09/05/2013 1:42 PM FACILITIES PAINTER Height 178 cm (5' 10.08 ) 09/05/2013 1:42 PM FACILITIES PAINTER Body Mass Index 22.05 09/05/2013 1:42 PM FACILITIES PAINTER Plan of Treatment Health Maintenance Due Date Last Done Comments DTAP/TDAP/TD VACCINES (1 - Tdap) 2014 HEPATITIS B VACCINES (1 of 3 - 19+ 3-dose series) 08/23 INFLUENZA VACCINE (#1) 2025 HPV VACCINES (No Doses Required) Completed [place] Care Teams Occupational Health Coordinator Relationship Specialty Start Date End Date Ian Trammell DO PCP - General Family Practice 09/05/13
[2025-10-02 20:15] LABS: Hematocrit 45.3 % (37-53); Hemoglobin 15.90 g/dL (11.27-16.99); Mean Corpuscular HGB Conc 35.1 g/dL (30-55); Mean Corpuscular Hemoglobin 30.7 pg (27-33); Mean Corpuscular Volume 87.5 fl (82-101); Nucleated Red Blood Cells % 0 %; Platelet Count 366 10^3/cmm (157-399); Red Blood Count 5.18 10^6/uL (3.85-5.65); White Blood Count 13.32 10^3/uL (3.29-11.43)
--- NOTE | 2025-10-02 20:16 | PC.NURSE ---
Received verbal orders for 2mg Ativan IVP and [address] Villalba. Meds were overrode due to emergent situation.
[2025-10-02] MEDS: haloperidol inj 5 mg/mL INJ 1 mL IVP (20:18)
[2025-10-02] MEDS: LORazepam 2 mg/mL INJ 1 mL IVP (20:18)
--- NOTE | 2025-10-02 20:18 | XRR_ITS ---
PROCEDURE INFORMATION: Exam: XR Chest Exam date and time: 10/02/2025 8:22 PM Age: 30 years old Clinical indication: EMS arrival for seizure activity; Additional info: Chris TECHNIQUE: Imaging protocol: Radiologic exam of the chest. Views: 1 view. COMPARISON: CR (CHEST, ) 09/13/2025 1:08 AM FINDINGS: Lungs: Unremarkable. No consolidation. Pleural spaces: Unremarkable. No pleural effusion. No pneumothorax. Heart/Mediastinum: Unremarkable. No cardiomegaly. Bones/joints: Unremarkable. XR/XR chest 1V portable [id number] IMPRESSION: No acute findings.
[2025-10-02 20:32] LABS: Alanine Aminotransferase 48 U/L (0-41); Albumin Level 4.6 g/dL (3.5-5.2); Alcohol Level 174 mg/dL (0-10); Alkaline Phosphatase 91 U/L (40-130); Anion Gap 23.4 (5-19); Aspartate Amino Transferase 39 U/L (0-40); Blood Urea Nitrogen 16 mg/dL (6-20); Calcium 9.3 mg/dL (8.5-10.5); Carbon Dioxide 20 mmol/L (22-29); Chloride 99 mmol/L (98-107); Globulin 3.3 g/dL (1.3-4.6); Glucose 118 mg/dL (65-115); Magnesium 2.3 mg/dL (1.7-2.3); Osmolality Calculated 288 mOsm/kg (285-295); Potassium 4.4 mmol/L (3.5-5.1); Sodium 138 mmol/L (136-145); Total Protein 7.9 g/dL (6.6-8.7)
[2025-10-02] MEDS: thiamine 100 mg/mL 2mL SDV IVP (20:34)
[2025-10-02 21:13] LABS: Lactic Sepsis W/Reflex 7.6 mmol/L (0.5-2.2)
[2025-10-02 22:09] LABS: Reflex Lactate Order REFLEX LACTIC ORDERD
--- NOTE | 2025-10-02 22:20 | W.ED.SEIZURE ---
HPI - Seizure General: Chief Complaint: Seizure Stated Complaint: siezure Time Seen by Provider: 10/02/25 20:08 History of Present Illness: HPI Narrative: Patient Sergo presents with seizure activity. He was previously seen in this facility last weekend for similar symptoms. Per patient report, he has been feeling well since his last visit until today's episode. He denies having any seizures between last week's visit and today. Patient reports he felt good today prior to this event. He has been compliant with his newly prescribed anti-seizure medication, which he describes as 'crazy' and states 'it sucks, ' suggesting possible side effects. Patient admits to consuming 'a few beers' today. During the current encounter, patient was initially unresponsive but abruptly became more alert and oriented. Seizure History: Yes Place: in car Related Data Previous Rx's ?Medication ?Instructions ?Recorded levetiracetam 500 mg tablet 500 mg PO BID #60 tabs 09/27/25 (Keppra) lorazepam 1 mg tablet (Ativan) 1 mg PO DAILY PRN anxiety #7 tabs 10/02/25 Allergies Allergy/AdvReac Type Severity Reaction Status Date / Time No Known Allergies Allergy Verified 10/02/25 20:17 PFS ED PFSH: Social History Smoking and tobacco/nicotine status: never used tobacco/nicotine Physical Exam Const: GENERAL APPEARANCE: cooperative, lethargic (mildly) and odor of alcohol detected ORIENTATION/CONSCIOUSNESS: Yes confused and Yes lethargic (mildly) HENMT: COMMON NORMALS: normocephalic, atraumatic and Normal external nose present HEAD & SCALP: normocephalic and atraumatic FACE & SINUS: normal facial exam and face symmetric NOSE: Normal external nose present MOUTH: tongue normal Eye: COMMON NORMALS: Equal, round and reactive pupils present, EOMs intact bilaterally and conjunctivae normal CONJUNCTIVA: Yes conjunctivae normal PUPIL: Yes Equal, round and reactive pupils present Neck/C-Spine: GENERAL: Yes trachea midline Resp: COMMON NORMALS: normal respiratory effort, No use of accessory muscles and clear to auscultation bilaterally AUSCULTATION: clear to auscultation bilaterally Cardio: COMMON NORMALS: regular rate and regular rhythm RATE: regular rate RHYTHM: regular rhythm GI: COMMON NORMALS: Soft to palpation PALPATION: Yes Soft to palpation Extremity: COMMON NORMALS: no pedal edema Neuro: MAYELA COMA SCALE: document GCS findings [place] coma scale eye opening: Spontaneous Mayela coma scale verbal response: Confused [place] coma scale motor response: Obey commands Mayela coma scale total score: 14 SENSORIUM/ORIENTATION: Yes lethargic (mildly) SPEECH: abnormal speech Details: slurred SENSORY EXAM: Yes extremities (intact) MOTOR EXAM: no tremor noted, Normal motor muscle tone present throughout and No Tremors during motor activity present Course Vital Signs: Vital signs: Vital Signs Temperature 98 F 10/02/25 20:13 Pulse Rate 82 10/02/25 23:36 Respiratory Rate 27 H 10/02/25 20:13 Blood Pressure 108/71 10/02/25 23:36 Pulse Oximetry 98 10/02/25 23:36 Oxygen Delivery Me thod Room Air 10/02/25 23:28 MDM - Seizure MDM Narrative Medical decision making narrative: 30-year-old male patient with a history of seizures, or pseudoseizures. They have yet to be diagnosed. He was placed on Keppra last weekend for episodes similar to his presentation the night. He tells me that he has not had seizures since last weekend. He tells me he has been taking his medications appropriately. He has had multiple episodes this evening. On arrival, he was given 2 mg of Ativan IV, as well as 5 mg of Haldol IV. He has not seized at all since the Haldol. Similar improvement was noticed last weekend with same medication. His vitals are stable. His CBC shows a white blood cell count of 13.3. Is otherwise normal. Creatinine is 1.4. Bicarb level is 20. Lactic acid is significantly elevated at 7.6, however 2-hour lactic repeat is 2.1 after 1 L of fluid. Alcohol level is 174. CK is normal at 211. Prolactin level is mildly elevated however. His alcohol level is 174. This patient needs to avoid alcohol. He was counseled on this. He will continue his Keppra. He is essentially back to baseline. He is stable for discharge. Will be allowed home for further workup as an outpatient regarding seizure like activity. Lab Data 10/02/25 20:08 10/02/25 20:08 Labs: Radiology Impressions Chest X-Ray 10/02/25 20:18 IMPRESSION: No acute findings. Laboratory Results WBC 13.32 10^3/uL (3.29-11.43) H 10/02/25 20:08 RBC 5.18 10^6/uL (3.85-5.65) 10/02/25 20:08 Hgb 15.90 g/dL (11.27-16.99) 10/02/25 20:08 Hct 45.3 % (37-53) 10/02/25 20:08 MCV 87.5 fl (82-101) 10/02/25 20:08 MCH 30.7 pg (27-33) 10/02/25 20:08 MCHC 35.1 g/dL (30-55) 10/02/25 20:08 RDW 12.1 % (12.1-15.1) 10/02/25 20:08 Plt Count 366 10^3/cmm (157-399) 10/02/25 20:08 MPV 8.9 fL (7.4-10.4) 10/02/25 20:08 Neut % (Auto) 37.6 % 10/02/25 20:08 Lymph % (Auto) 55.6 % 10/02/25 20:08 Day % (Auto) 4.9 % 10/02/25 20:08 Eos % (Auto) 0.8 % 10/02/25 20:08 Baso % (Auto) 0.9 % 10/02/25 20:08 Neut # (Auto) 5.01 10^3/uL (1.8-7.7) 10/02/25 20:08 Lymph # (Auto) 7.4 10^3/uL (0.8-4.8) H 10/02/25 20:08 Day # (Auto) 0.7 10^3/uL (0.2-0.9) 10/02/25 20:08 Eos # (Auto) 0.1 10^3/uL (0.0-0.8) 10/02/25 20:08 Baso # (Auto) 0.1 10^3/uL (0.0-0.1) 10/02/25 20:08 Nucleated RBC % (auto) 0 % 10/02/25 20:08 Nucleated RBCs # 0.0 /100WBC 10/02/25 20:08 Sodium 138 mmol/L (136-145) 10/02/25 20:08 Potassium 4.4 mmol/L (3.5-5.1) 10/02/25 20:08 Chloride 99 mmol/L (98-107) 10/02/25 20:08 Carbon Dioxide 20 mmol/L (22-29) L 10/02/25 20:08 Anion Gap 23.4 (5-19) H 10/02/25 20:08 BUN 16 mg/dL (6-20) 10/02/25 20:08 Creatinine 1.4 mg/dL (0.7-1.2) H 10/02/25 20:08 GFR Calculation 59.5 mL/min (90-130) L 10/02/25 20:08 Glucose 118 mg/dL (65-115) H 10/02/25 20:08 Calculated Osmolality 288 mOsm/kg (285-295) 10/02/25 20:08 Lactic Acid 7.6 mmol/L (0.5-2.2) H* 10/02/25 20:08 Lactic Acid (Sepsis) 2.1 mmol/L (0.5-2.2) 10/02/25 22:04 Calcium 9.3 mg/dL (8.5-10.5) 10/02/25 20:08 Magnesium 2.3 mg/dL (1.7-2.3) 10/02/25 20:08 Total Bilirubin 0.6 mg/dL (0.15-1.2) 10/02/25 20:08 AST 39 U/L (0-40) 10/02/25 20:08 ALT 48 U/L (0-41) H 10/02/25 20:08 Alkaline Phosphatase 91 U/L (40-130) 10/02/25 20:08 Creatine Kinase 211 U/L (39-308) 10/02/25 20:08 Total Protein 7.9 g/dL (6.6-8.7) 10/02/25 20:08 Albumin 4.6 g/dL (3.5-5.2) 10/02/25 20:08 Globulin 3.3 g/dL (1.3-4.6) 10/02/25 20:08 Prolactin 16.64 ng/mL (4.0-15.2) H 10/02/25 20:08 Ethyl Alcohol 174 mg/dL (0-10) H 10/02/25 20:08 All radiology interpretation(s) finalized by discharge Discharge Plan Discharge Patient Disposition: Home Clinical Impression: Generalized seizure Condition: Stable Prescriptions: Continued lorazepam [Ativan] 1 mg tablet 1 mg PO DAILY PRN (Reason: anxiety) Qty: 7 0RF No Action levetiracetam [Keppra] 500 mg tablet 500 mg PO BID Qty: 60 0RF Discharge Orders: Discharge ED (Routine); Ordered 10/02/25 Ordered By: Alexis Villalba Referrals: Ian Trammell DO [Primary Care Provider, Family Practice] - 1-3 days Patient Instructions: Recurrent Seizures in Adults (ED), Opioid Safety, Pain Management, Patient Portal & [facility] Instructions Activity Restrictions/Additional Instructions: Avoid alcohol use, as it is likely the cause of your repetitive seizures. Continue your antiepileptic medication. Return for repeated episodes of seizure, worsening mental status, any other complaints. Stand Alone Forms: Work/School Release Print Language: [place] Zealander Coding Level of Care Code ED [employer] for [employer]
[2025-10-02 22:39] LABS: Lactic Acid level (Lactate) 2.1 mmol/L (0.5-2.2)
== END 2025-10-02 23:45 | disposition home or self-care (01) ==
PROVIDERS: Physician Assistant; Emergency Provider Emergency Medicine; PCP Electrodiagnostic Medicine
DX: G40.409 Other generalized epilepsy and epileptic syndromes, not intractable, without status epilepticus (principal)
CPT/HCPCS: 71045; 80053; 80307; 82550; 83605; 83735; 84146; 85025; 96361; 96374; 96375; 99284; J1630; J2060; J3411; J7030